=== PATIENT | female | born 1980 | race Caucasian/White ===

== ENCOUNTER 2019-03-24 08:40 | Outpatient (CLI) | payer OTHER, SELFPAY ==
--- NOTE | 2019-03-24 08:49 | MM_ITS ---
WS: [id number] BILATERAL DIGITAL DIAGNOSTIC MAMMOGRAM MAMMOGRAPHY WITH CAD CLINICAL INFORMATION: RT BREAST LUMP COMPARISON: None. TECHNIQUE: Bilateral CC, MLO, and ML views. FINDINGS: Scattered fibroglandular densities bilaterally. Palpable marker upper outer right breast. Oval shaped asymmetric density measuring 1.6 cm in this area. Ultrasound is pending. Unremarkable left breast. ULTRASOUND BREAST RIGHT TECHNIQUE: Ultrasound right breast focused area of concern. CLINICAL INFORMATION: RT BREAST LUMP COMPARISON: None. FINDINGS: Ultrasound right breast performed at the 8:00 position 4 cm from the nipple. Hypoechoic well-circumsc ribed cyst with through transmission measuring 1.2 x 1.4 x 1.2 cm corresponds to the mammographic abn ormality. This is a benign finding. No other abnormalities. MM/[place] [id number] IMPRESSION: BI-RADS: 2-Benign FOLLOW UP: 1 Year Follow-up Recommend annual screening mammography.
--- NOTE | 2019-03-24 09:31 | US_ITS ---
WS: [id number] BILATERAL DIGITAL DIAGNOSTIC MAMMOGRAM MAMMOGRAPHY WITH CAD CLINICAL INFORMATION: RT BREAST LUMP COMPARISON: None. TECHNIQUE: Bilateral CC, MLO, and ML views. FINDINGS: Scattered fibroglandular densities bilaterally. Palpable marker upper outer right breast. Oval shaped asymmetric density measuring 1.6 cm in this area. Ultrasound is pending. Unremarkable left breast. ULTRASOUND BREAST RIGHT TECHNIQUE: Ultrasound right breast focused area of concern. CLINICAL INFORMATION: RT BREAST LUMP COMPARISON: None. FINDINGS: Ultrasound right breast performed at the 8:00 position 4 cm from the nipple. Hypoechoic well-circumsc ribed cyst with through transmission measuring 1.2 x 1.4 x 1.2 cm corresponds to the mammographic abn ormality. This is a benign finding. No other abnormalities. US/US breast RT limited* [id number] IMPRESSION: BI-RADS: 2-Benign FOLLOW UP: 1 Year Follow-up Recommend annual screening mammography.
== END 2019-03-24 08:41 | disposition home or self-care (01) ==
LOC: RADSHAW 08:41
PROVIDERS: Family Provider Family Medicine; PCP Family Medicine; Visit Provider Family Medicine
DX: N63.11 Unspecified lump in the right breast, upper outer quadrant (principal)
CPT/HCPCS: 76642; 77066

== ENCOUNTER → 2019-04-26 10:29 | Outpatient (BNVA) | payer OTHER, SELFPAY | PROVIDERS: Family Provider Family Medicine; PCP Family Medicine; Visit Provider Family Medicine | DX: I10 Essential (primary) hypertension (principal) | CPT/HCPCS: 80053; 80061; 82044; 85025 ==

== ENCOUNTER → 2020-01-21 10:45 | Outpatient (BNVA) | payer OTHER, SELFPAY | PROVIDERS: Family Provider Family Medicine; PCP Family Medicine; Visit Provider Family Medicine | DX: I10 Essential (primary) hypertension (principal); G43.001 Migraine without aura, not intractable, with status migrainosus | CPT/HCPCS: 80048 ==

== ENCOUNTER → 2020-08-31 08:22 | Outpatient (BNVA) | payer OTHER, SELFPAY | PROVIDERS: Family Provider Family Medicine; PCP Family Medicine; Visit Provider Family Medicine | DX: I10 Essential (primary) hypertension (principal); Z86.39 Personal history of other endocrine, nutritional and metabolic disease | CPT/HCPCS: 80053; 80061; 82043; 82306; 85025 ==

== ENCOUNTER 2020-09-06 13:13 | Outpatient (CLI) | payer OTHER, SELFPAY ==
--- NOTE | 2020-09-06 13:30 | US_ITS ---
WS: [id number] ULTRASOUND PELVIS TECHNIQUE: Transabdominal and transvaginal. ULTRASOUND PELVIS TECHNIQUE: Transabdominal. CLINICAL INFORMATION: menorrhagia LMP: ? : No. COMPARISON: FINDINGS: Heterogeneous uterus Orientation: Anteverted. Size: 8.3 cm x 5.4 cm x 4.6 cm. Masses: None. Cervix: Complex nabothian cyst or with internal debris or possibly polyp measuring 1.0 x 0.9 x 0.6 cm . Endometrium: Normal. Endometrium thickness: 0.9 cm. Adnexa: Neither ovary is visualized. No adnexal masses. Free fluid: None. Other findings: None. US/US pelvic with transvaginal IMPRESSION: 1. Heterogeneous uterus with scar 2. Normal endometrium measuring 8.5 mm 3. Complex nabothian cyst with internal debris versus cervical polyp. This clifford sures 1.0 x 0.9 x 0.6 cm. This can be further evaluated with direct visualizati on/hysteroscopy 4. Neither ovary is visualized. No adnexal masses. 5. No free fluid in the cul-de-sac.
== END 2020-09-06 13:14 | disposition home or self-care (01) ==
PROVIDERS: PCP Family Medicine; Visit Provider Family Medicine
DX: N92.0 Excessive and frequent menstruation with regular cycle (principal); N88.8 Other specified noninflammatory disorders of cervix uteri
CPT/HCPCS: 76830; 76856

== ENCOUNTER → 2020-10-02 15:20 | Outpatient (BNVA) | payer OTHER, SELFPAY | PROVIDERS: PCP Family Medicine; Visit Provider Obstetrics & Gynecology | DX: Z12.4 Encounter for screening for malignant neoplasm of cervix (principal); N92.0 Excessive and frequent menstruation with regular cycle; N88.8 Other specified noninflammatory disorders of cervix uteri | CPT/HCPCS: 88175 ==

== ENCOUNTER → 2020-10-26 08:45 | Outpatient (BNVA) | payer OTHER, SELFPAY | PROVIDERS: PCP Family Medicine; Visit Provider Obstetrics & Gynecology | DX: Z20.822 Contact with and (suspected) exposure to COVID-19 (principal); N88.8 Other specified noninflammatory disorders of cervix uteri; N92.0 Excessive and frequent menstruation with regular cycle | CPT/HCPCS: 87635 ==

== ENCOUNTER 2020-10-31 11:07 | Day surgery (SDC) | payer OTHER, SELFPAY ==
[2020-10-26 09:50] VITALS: BMI 29.1
--- NOTE | 2020-10-26 09:59 | ANES.PREANE2 ---
Pre-Anesthetic Assessment Pre-Anesthetic Assessment: Height/Weight: Height 1.79 m Weight 93.44 kg Preop Diagnosis: Cervical mass Proposed Procedure: Operation Date: 10/31/20 12:55 Proposed Procedures p Hysteroscopy w/ Ablation w/ Novasure 32608 62642 N92.0 N88.8(Not Applicable) - Edith Hammond MD s Dilation And Curettage with myosure 59460(Not Applicable) - Edtih Hammond MD Familial anesthetic complications: none Social: Social History: No alcohol and No tobacco Exam: Pre-Anes Outpt Exam: alert, oriented x 3, clear to auscultation bilaterally and regular rate & rhythm Airway: Cervical ROM: WNL MP: 2 Dentition: Full CV/HEM: CV/HEM: HTN Comments: palpitations - not currently Anesthetic Plan: ASA status: 2 Anesthesia: General Risk of > 500 ml blood loss (7ml/kg in children): No PFSH Anesthesia PFSH: Medical History Essential hypertension Migraines Surgical History S/P section Family History Mother Atrial fibrillation Thyroid disease Father Atrial fibrillation Hypertension Family/Other Ovarian cancer Maternal and Paternal Aunts Grandmother Cancer Maternal - lung cancer Diabetes Maternal Grandfather Stroke Paternal Denies family history of CAD (coronary artery disease) Clotting disorder Hyperlipidemia Chronic kidney disease (CKD) Bleeding disorder Female Reproductive History: Date of last menstrual period: 10/07/20 Data Anesthesia Cardiac Studies: No Data to Display
[2020-10-31] VITALS (7 sets, daily range): BP systolic 124–146; BP diastolic 79–93; PULSE 68–80; RESP 17–20; TEMP 36.3–37.2; O2SAT 95–100
[2020-10-31] MEDS: sodium chloride 0.9% 1,000 ML 30 ML IV (11:28)
[2020-10-31 11:39] LABS: OR HCG Qualitative Urine Negative (Negative)
[2020-10-31 11:49] LABS: Basophils % 0.4 %; Eosinophils # 0.4 10^3/uL (0.0-0.8); Eosinophils % 4.9 %; Hematocrit 39.3 % (37.0-47.0); Hemoglobin 12.8 g/dL (11.5-15.3); Lymphocytes # 1.1 10^3/uL (0.8-4.8); Lymphocytes % 15.3 %; Mean Corpuscular HGB Conc 32.6 g/dL (30.0-36.0); Mean Corpuscular Hemoglobin 31.5 pg (28.0-34.0); Mean Corpuscular Volume 96.8 fl (81-99); Mean Platelet Volume 9.1 fL (7.4-10.4); Monocytes # 0.4 10^3/uL (0.2-0.9); Monocytes % 5.9 %; Neutrophils # 5.38 10^3/uL (1.8-7.7); Neutrophils % 73.4 %; Nucleated Red Blood Cells % 0 %; Platelet Count 385 10^3/cmm (130-400); Red Blood Count 4.06 10^6/uL (4.1-5.3); Red Cell Distribution Width 14.4 % (12.1-15.1); White Blood Count 7.3 10^3/uL (4.0-10.0)
[2020-10-31] MEDS: ketorolac 30 mg/mL INJ IVP (12:06)
[2020-10-31 12:25] LABS: Blood Urea Nitrogen 13 mg/dL (6-20); Carbon Dioxide 21 mmol/L (22-29); Chloride 105 mmol/L (98-107); Glomerular Filtration Rate 135.3 mL/min (90-130); Glucose 88 mg/dL (65-115); Osmolality Calculated 288 mOsm/kg (285-295); Sodium 139 mmol/L (136-145)
[2020-10-31 12:27] LABS: Anion Gap 17.2 (5-19); Potassium 4.2 mmol/L (3.5-5.1)
--- NOTE | 2020-10-31 12:47 | ANES.PREANE2 ---
Pre-Anesthetic Assessment Pre-Anesthetic Assessment: Height/Weight: Height 1.79 m Weight 93.44 kg Temp Pulse Resp BP Pulse Ox 97.3 F L 68 18 126/93 97 10/31/20 11:18 10/31/20 11:18 10/31/20 11:18 10/31/20 11:18 10/31/20 11:18 Preop Diagnosis: menorrhagia Proposed Procedure: Operation Date: 10/31/20 12:55 Proposed Procedures p Hysteroscopy w/ Ablation w/ Novasure 30378 80438 N92.0 N88.8(Not Applicable) - Edith Hammond MD s Dilation And Curettage with myosure 09274(Not Applicable) - Edith Hammond MD Was Beta Marry taken within 24 hours: N/A Was Clonidine taken within 24 hours: N/A Last intake: Intake Last Liquid Date 10/30/20 Last Liquid Time 20:00 Last Solid Date 10/30/20 Last Solid Time 20:00 Social: Social History: No alcohol and No tobacco Exam: Pre-Anes Outpt Exam: alert, oriented x 3, clear to auscultation bilaterally and regular rate & rhythm Airway: Submandibular: WNL Cervical ROM: WNL MP: 2 Dentition: Full CV/HEM: CV/HEM: HTN Neuropsych: Neuropsych: [place] Anesthetic Plan: ASA status: 2 Anesthesia: General Risk of > 500 ml blood loss (7ml/kg in children): No Meds/Allergies Current Medications: Current Medications Generic Name Dose Route Start Last Admin Trade Name Freq PRN Reason Stop Dose Admin Sodium Chloride 1,000 mls @ 30 ml s/hr 10/31/20 11:15 10/31/20 11:28 Sodium Chloride 0.9% IV 11/01/20 11:14 30 mls/hr .Q24H ULICES Administration PFSH Anesthesia PFSH: Medical History Essential hypertension Migraines Surgical History S/P section Family History Mother Atrial fibrillation Thyroid disease Father Atrial fibrillation Hypertension Family/Other Ovarian cancer Maternal and Paternal Aunts Grandmother Cancer Maternal - lung cancer Diabetes Maternal Grandfather Stroke Paternal Denies family history of CAD (coronary artery disease) Clotting disorder Hyperlipidemia Chronic kidney disease (CKD) Bleeding disorder Female Reproductive History: Date of last menstrual period: 10/07/20 Data Anesthesia CBC & Chem 7: 10/31/20 11:30 10/31/20 11:30 Other Labs: Laboratory Results - last 48 hr 10/31/20 10/31/20 10/31/20 11:29 11:30 11:30 WBC 7.3 RBC 4.06 L Hgb 12.8 Hct 39.3 MCV 96.8 MCH 31.5 MCHC 32.6 RDW 14.4 Plt Count 385 MPV 9.1 Neut % (Auto) 73.4 Lymph % (Auto) 15.3 [place] % (Auto) 5.9 Eos % (Auto) 4.9 Baso % (Auto) 0.4 Neut # (Auto) 5.38 Lymph # (Auto) 1.1 [place] # (Auto) 0.4 Eos # (Auto) 0.4 Baso # (Auto) 0.0 Nucleated RBC % (auto) 0 Nucleated RBCs # 0.0 Sodium 139 Potassium 4.2 Chloride 105 Carbon Dioxide 21 L Anion Gap 17.2 BUN 13 Creatinine 0.5 GFR Calculation 135.3 H Glucose 88 Calculated Osmolality 288 Calcium 9.0 Urine HCG, Qual Negative Cardiac Studies: No Data to Display
--- NOTE | 2020-10-31 13:10 | W.PM.OPSUD ---
Surgery/Procedure H&P Update DATE OF PROCEDURE: October 31, 2020 DATE H&P PERFORMED: 10/26/20 H&P UPDATE INFORMATION: I have reviewed H&P completed within last 30 days, I have examined patient prior to procedure and No changes to prior documentation PREOP DIAGNOSIS: menorrhagia PLANNED PROCEDURE: Operation Date: 10/31/20 12:55 Proposed Procedures p Hysteroscopy w/ Ablation w/ Novasure [id number] 72527 N92.0 N88.8(Not Applicable) - Edith Hammond MD s Dilation And Curettage with myosure 81814(Not Applicable) - Edith Hammond MD
--- NOTE | 2020-10-31 14:18 | PM.OP ---
Operative Report Date of procedure: October 31, 2020 Pre-op Diagnosis: menorrhagia Post-op diagnosis: same Post-op Findings: 10 week sized uterus with multiple fibroids and polyps Procedure Done: hysteroscopy, dilation and curettage with myosure, endometrial ablation with novasure Specimens removed/disposition: endometrial curettings to pathology Surgeon: Edith Hammond Anesthesia: General Estimated blood loss (mL): 20 IV fluids (mL): 800 Urine output (mL): 50 Complications: none Findings: 900 hysteroscopy deficit Condition: stable Disposition: PACU Procedure: The patient was taken to the operating room where monitored anesthesia was administered and to be adequate. She was prepped and draped in the normal sterile fashion in the dorsal lithotomy position in [facility]. A weighted speculum was placed into the vagina and the anterior lip of the cervix grasped with a single-tooth tenaculum. The uterus was sounded to 10 cm. The cervix was dilated to 15 [place]. The hysteroscope was advanced into the endometrial cavity. There were multiple fibroids and polyps visualized. The MyoSure device was activated and the tissue was removed. Pictures were taken pre procedure. There was too much bleeding from the fibroids to take post procedure pictures. Attention was turned to the novasure portion of the procedure The NovaSure device was advanced into the endometrial cavity. The endometrial length was 6.5 and the endometrial width was 4.9. The NovaSure device was activated and burn time was 61 seconds. All instruments were removed. The patient tolerated the procedure well. Sponge lap and needle counts were correct x3. She was taken to the recovery room in stable condition.
--- NOTE | 2020-10-31 14:24 | P.DS_ITS ---
Discharge Providers Date of Discharge: October 31, 2020 Attending Provider at Discharge: Edith Hammond MD Primary Care Provider: Cary Lamb DO Reason for Visit Reason for Visit: Hysteroscopy Hospital Course Hospital Course The patient was admitted for surgery. She did well postoperatively and was ready for discharge. Discharge Data Data Completed and Pending: Pending at discharge Category Date Time Status ES surgery / GI i mages Routine Exams 10/31/20 12:32 Ordered Urine Culture [facility] 10/31/20 11:30 Received Pathology: Surgic al [PTH] Routine Pth 10/31/20 14:17 Ordered Labs from last 24 hours 10/31/20 10/31/20 10/31/20 11:30 11:30 11:29 WBC 7.3 RBC 4.06 L Hgb 12.8 Hct 39.3 MCV 96.8 MCH 31.5 MCHC 32.6 RDW 14.4 Plt Count 385 MPV 9.1 Neut % (Auto) 73.4 Lymph % (Auto) 15.3 [place] % (Auto) 5.9 Eos % (Auto) 4.9 Baso % (Auto) 0.4 Neut # (Auto) 5.38 Lymph # (Auto) 1.1 [place] # (Auto) 0.4 Eos # (Auto) 0.4 Baso # (Auto) 0.0 Nucleated RBC % (a uto) 0 Nucleated RBCs # 0.0 Sodium 139 Potassium 4.2 Chloride 105 Carbon Dioxide 21 L Anion Gap 17.2 BUN 13 Creatinine 0.5 GFR Calculation 135.3 H Glucose 88 Calculated Osmolal ity 288 Calcium 9.0 Urine HCG, Qual Negative Vitals: Last Vital Signs Temp 97.3 F L 10/31/20 11:18 Pulse 68 10/31/20 11:18 Resp 18 10/31/20 11:18 BP 126/93 10/31/20 11:18 Pulse Ox 97 10/31/20 11:18 Discharge Plan Discharge Patient Disposition: Home Condition: Stable Prescriptions: Continued multivitamin [One Daily Multivitamin] Tablet 1 tab PO DAILY RF: 0 cetirizine [Zyrtec] 10 mg tablet 10 mg PO QDAY RF: 0 lisinopril 20 mg tablet 20 mg PO QDAY Qty: 90 RF: 1 rizatriptan [Maxalt-[employer] SYSTEM[employer] MANAGER] 10 mg tablet,disintegrating 10 mg PO ONCE PRN (Reason: migraine headache) Qty: 18 RF: 6 cholecalciferol (vitamin D3) 1,250 mcg (50,000 unit) capsule 50,000 unit PO .ONCE WEEKLY Qty: 12 RF: 0 naproxen [Naprosyn] 500 mg tablet 500 mg PO BID PRN (Reason: pain) Qty: 30 RF: 1 Discharge Orders: Discharge Order (Routine); Ordered 10/31/20 Ordered By: Edith Hammond Discharge Attestations Time Spent in Discharge Care*: less than 30 min Quality Metrics Clinical Quality Measures During this hospital stay, did patient experience: None Coding Level of Care Code Acute Chg FW DC note
[2020-10-31] MEDS: HYDROcodone-acetaminophen 5-325 mg Tablet 1 TAB PO (15:18)
--- NOTE | 2020-10-31 15:57 | ANE.PACU2 ---
Inpatient post-anesthesia follow up: Airway intact: Yes Vital signs: Temperature 97.5 F Pulse Rate 68 Respiratory Rate 18 Blood Pressure 146/93 Pulse Oximetry 97 Oxygen Delivery Me thod Room Air Oxygen Flow Rate Fraction of Inspir ed Oxygen Hydration adequate: Yes Nausea and vomiting: No Pain level: 2 Mental status: Baseline
== END 2020-10-31 15:35 | disposition home or self-care (01) ==
PROVIDERS: PCP Family Medicine; Visit Provider Obstetrics & Gynecology
PROC: 0U598ZZ Destruction of Uterus, Via Natural or Artificial Opening Endoscopic (ICD-10-PCS; CPT 58563; principal; 2020-10-31 12:50)
PROC: (CPT 58120; 2020-10-31 12:50)
DX: N92.0 Excessive and frequent menstruation with regular cycle (principal); I10 Essential (primary) hypertension
CPT/HCPCS: 58558; 36415; 80048; 81025; 84703; 85025; 87086; 88305; 96365; J0690; J1100; J1885; J2405; J3010; J7030

== ENCOUNTER → 2021-03-12 10:09 | Outpatient (BNVA) | payer OTHER, SELFPAY | PROVIDERS: PCP Family Medicine; Visit Provider Family Medicine | DX: I10 Essential (primary) hypertension (principal); Z86.39 Personal history of other endocrine, nutritional and metabolic disease; G43.001 Migraine without aura, not intractable, with status migrainosus; M62.838 Other muscle spasm; Z68.29 Body mass index [BMI] 29.0-29.9, adult; F17.211 Nicotine dependence, cigarettes, in remission | CPT/HCPCS: 80053; 82306 ==

== ENCOUNTER → 2021-03-26 09:30 | Outpatient (BNVA) | payer OTHER, SELFPAY | PROVIDERS: PCP Family Medicine; Visit Provider Nurse Practitioner Family | DX: Z20.822 Contact with and (suspected) exposure to COVID-19 (principal) | CPT/HCPCS: 87635; 87880 ==

== ENCOUNTER → 2021-09-17 08:42 | Outpatient (BNVA) | payer OTHER, SELFPAY | PROVIDERS: PCP Family Medicine; Visit Provider Family Medicine | DX: I10 Essential (primary) hypertension (principal); G43.001 Migraine without aura, not intractable, with status migrainosus; Z12.31 Encounter for screening mammogram for malignant neoplasm of breast | CPT/HCPCS: 80053; 80061; 82043; 85025 ==

== ENCOUNTER → 2021-11-21 11:45 | Outpatient (BNVA) | payer OTHER, SELFPAY | PROVIDERS: PCP Family Medicine; Visit Provider Emergency Medicine | DX: R30.0 Dysuria (principal); N30.01 Acute cystitis with hematuria; F41.8 Other specified anxiety disorders | CPT/HCPCS: 81000 ==

== ENCOUNTER → 2022-03-12 08:49 | Outpatient (BNVA) | payer OTHER, SELFPAY | PROVIDERS: PCP Family Medicine; Visit Provider Family Medicine | DX: Z86.39 Personal history of other endocrine, nutritional and metabolic disease (principal); I10 Essential (primary) hypertension | CPT/HCPCS: 80053; 82306 ==

== ENCOUNTER → 2022-09-19 11:18 | Outpatient (BNVA) | payer OTHER, SELFPAY | PROVIDERS: PCP Family Medicine; Visit Provider Family Medicine | DX: Z13.6 Encounter for screening for cardiovascular disorders (principal); I10 Essential (primary) hypertension | CPT/HCPCS: 80053; 80061; 82607; 82728; 83550; 85025 ==

== ENCOUNTER 2022-11-25 14:48 | Outpatient (CLI) | payer OTHER, SELFPAY ==
--- NOTE | 2022-11-25 15:04 | MM_ITS ---
WS: [id number] BILATERAL 3D TOMOSYNTHESIS DIGITAL SCREENING MAMMOGRAPHY WITH CAD CLINICAL INFORMATION: screening mammogram HISTORY: Screening mammogram. No current complaints. COMPARISON: 2020 TECHNIQUE: Bilateral CC and MLO views. FINDINGS: Scattered fibroglandular densities bilaterally. Similar-appearing RIGHT ovoid nodule previously demon strated to represent a cyst. New ovoid nodules LEFT breast measuring 10 mm and 9 [address] lateral LEFT [address] Additional partially obscured new nodule upper outer LEFT breast measuring 10 mm. Recommend LEFT diagnostic mammography and ultrasound. RIGHT breast is unchanged. IMPRESSION: MM/[place] [id number] BI-RADS: 0-Incomplete: Need additional imaging evaluation FOLLOW UP: Need Additional Imaging Recommend LEFT diagnostic mammography and ultrasound
== END 2022-11-25 14:49 | disposition home or self-care (01) ==
LOC: RAD 14:50
PROVIDERS: PCP Family Medicine; Visit Provider Family Medicine
DX: Z12.31 Encounter for screening mammogram for malignant neoplasm of breast (principal)
CPT/HCPCS: 77063; 77067

== ENCOUNTER 2022-12-19 09:07 | Outpatient (CLI) | payer OTHER, SELFPAY ==
--- NOTE | 2022-12-19 09:11 | MM_ITS ---
WS: [id number] LEFT 3D TOMOSYNTHESIS DIGITAL MAMMOGRAPHY WITH CAD CLINICAL INFORMATION: abnormal mammogram HISTORY: Additional views COMPARISON: 11/25/2022 TECHNIQUE: 4 views of the left breast were obtained. FINDINGS: The left breast is composed of heterogeneous fibroglandular density tissue, which can limit the detec tion of small underlying mass lesions. Stable nodular ovoid lesions upper outer LEFT breast. Ultrasou nd is pending. ULTRASOUND BREAST LEFT TECHNIQUE: Ultrasound left breast focused area of concern. CLINICAL INFORMATION: abnormal mammogram FINDINGS: Ultrasound upper outer quadrant LEFT breast. Multiple simple cysts are visualized the largest measuri ng 1.3 x 1.3 x 0.6 cm at the 2 o'clock position 2 cm from the nipple. Findings are benign. Recommend return to annual screening mammography. IMPRESSION: MM/[place] [id number] BI-RADS: 2-Benign FOLLOW UP: 1 Year Follow-up Recommend return to annual screening mammography.
--- NOTE | 2022-12-19 09:30 | US_ITS ---
WS: [id number] LEFT 3D TOMOSYNTHESIS DIGITAL MAMMOGRAPHY WITH CAD CLINICAL INFORMATION: abnormal mammogram HISTORY: Additional views COMPARISON: 11/25/2022 TECHNIQUE: 4 views of the left breast were obtained. FINDINGS: The left breast is composed of heterogeneous fibroglandular density tissue, which can limit the detec tion of small underlying mass lesions. Stable nodular ovoid lesions upper outer LEFT breast. Ultrasou nd is pending. ULTRASOUND BREAST LEFT TECHNIQUE: Ultrasound left breast focused area of concern. CLINICAL INFORMATION: abnormal mammogram FINDINGS: Ultrasound upper outer quadrant LEFT breast. Multiple simple cysts are visualized the largest measuri ng 1.3 x 1.3 x 0.6 cm at the 2 o'clock position 2 cm from the nipple. Findings are benign. Recommend return to annual screening mammography. IMPRESSION: US/US breast LT limited* [id number] BI-RADS: 2-Benign FOLLOW UP: 1 Year Follow-up Recommend return to annual screening mammography.
== END 2022-12-19 09:08 | disposition home or self-care (01) ==
LOC: RAD 09:07
PROVIDERS: PCP Family Medicine; Visit Provider Family Medicine
DX: R92.8 Other abnormal and inconclusive findings on diagnostic imaging of breast (principal)
CPT/HCPCS: 76642; 77061; G0279

== ENCOUNTER 2023-04-19 16:37 | Emergency (ER) | payer BC, SELFPAY ==
[2023-04-19 16:47] VITALS: BP 188/111; PULSE 73; RESP 17; TEMP 36.7; O2SAT 96; BMI 29.4
--- NOTE | 2023-04-19 16:56 | ECG_ITS ---
[facility] Test Date: 2023-04-19 Pat Name: Lisa Almonte Department: Room: Gender: Female [employer]: : 1980 Requested By: Jignesh Lorenzo Order Number: [id number] Rosita MD: Jaden Barksdale M.D. Measurements Intervals [place] Rate: 63 P: 24 TN: 184 QRS: -31 QRSD: 118 T: -6 QT: 409 QTc: 421 Interpretive Statements SINUS RHYTHM LEFT AXIS DEVIATION [QRS AXIS < -30] PATTERN CONSISTENT WITH PULMONARY DISEASE MODERATE INTRAVENTRICULAR CONDUCTION DELAY [110+ ms QRS DURATION] INTERPRETATION BASED ON A DEFAULT AGE OF 40 YEARS No previous ECG available for comparison Electronically Signed On 04-20-2023 8:21:15 [employer] [place] by Jaden Barksdale M.D. [id number]
[2023-04-19 17:27] LABS: Basophils # 0.1 10^3/uL (0.0-0.1); Basophils % 0.4 %; Eosinophils # 0.1 10^3/uL (0.0-0.8); Eosinophils % 0.9 %; Hematocrit 39.8 % (36-47); Lymphocytes # 1.3 10^3/uL (0.8-4.8); Lymphocytes % 9.2 %; Mean Corpuscular HGB Conc 32.7 g/dL (30-55); Mean Corpuscular Hemoglobin 32.7 pg (27-33); Mean Platelet Volume 8.6 fL (7.4-10.4); Monocytes # 0.7 10^3/uL (0.2-0.9); Monocytes % 4.9 %; Neutrophils # 11.79 10^3/uL (1.8-7.7); Neutrophils % 84.3 %; Nucleated Red Blood Cells % 0 %; Platelet Count 336 10^3/cmm (157-399); Red Blood Count 3.98 10^6/uL (3.85-5.65); Red Cell Distribution Width 12.7 % (12.1-15.1)
[2023-04-19 17:50] LABS: Alanine Aminotransferase 18 U/L (0-33); Albumin Level 4.3 g/dL (3.5-5.2); Alkaline Phosphatase 94 U/L (35-105); Anion Gap 16.1 (5-19); Aspartate Amino Transferase 23 U/L (0-32); Blood Urea Nitrogen 11 mg/dL (6-20); Calcium 8.8 mg/dL (8.5-10.5); Carbon Dioxide 23 mmol/L (22-29); Chloride 105 mmol/L (98-107); Globulin 2.6 g/dL (1.3-4.6); Glomerular Filtration Rate 108.1 mL/min (90-130); Glucose 97 mg/dL (65-115); Lipase 22 U/L (13-60); Osmolality Calculated 289 mOsm/kg (285-295); Potassium 4.1 mmol/L (3.5-5.1); Sodium 140 mmol/L (136-145); Total Bilirubin 0.2 mg/dL (0.15-1.2); Total Protein 6.9 g/dL (6.6-8.7)
[2023-04-19 17:54] LABS: HCG, Serum Qual Negative (Negative)
--- NOTE | 2023-04-19 18:00 | CTR_ITS ---
PROCEDURE INFORMATION: Exam: CT Abdomen And Pelvis Without Contrast Exam date and time: 04/19/2023 6:26 PM Age: 43 years old Clinical indication: Abdominal pain; Localized; Right lower quadrant (rlq); Prior surgery; Surgery date: 6+ months; Surgery type: Gb. Uterine ablation. Csection. Tubal. ; Additional info: Rlq pain, Negative test. TECHNIQUE: Imaging protocol: Computed tomography of the abdomen and pelvis without contrast. Sagittal and coronal reformatted images were created and reviewed. Radiation optimization: All CT scans at this facility use at least one of these dose optimization techniques: automated exposure control; mA and/or kV adjustment per patient size (includes targeted exams where dose is matched to clinical indication); or iterative reconstruction. COMPARISON: US pelv w/transvag [id number] 09/06/2020 1:44 PM RADIATION DOSE METRICS: Total DLP (mGy-cm): 1139.09 FINDINGS: Limitations: Evaluation of solid organs and vasculature is limited without intravenous contrast. Lungs: Visualized lungs are clear. Pleural spaces: No pleural effusion. Heart: Visualized portions of the heart are unremarkable. Liver: The liver is unremarkable. Gallbladder and bile ducts: Patient has had a previous cholecystectomy. No biliary ductal dilatation. Pancreas: The pancreas is unremarkable. No pancreatic ductal dilatation. Spleen: The spleen is unremarkable. Adrenal glands: The right and left adrenal glands are unremarkable. Kidneys and ureters: The right and left kidneys are unremarkable. The right and left ureters are unremarkable. Stomach and bowel: No obstruction. No mucosal thickening. Appendix: The appendix is visualized and is unremarkable. No findings to suggest acute appendicitis. Intraperitoneal space: No free intraperitoneal air. No ascites. No loculated fluid collections to suggest an abscess. Vasculature: Minimal atherosclerotic changes in the visualized arteries. No evidence for aortic aneurysm. Lymph nodes: No lymphadenopathy. Urinary bladder: The bladder is unremarkable for the degree of distension. Reproductive: Calcification in the right ovary, possibly due to sequela from a prior involuting cyst. Multiple subcentimeter follicles in both right and left ovaries. 1.6 x 2.1 x 2.6 cm fluid collection in the endometrial canal. Bones/joints: [id number] multilevel degenerative changes in the visualized spine. Soft tissues: No acute abnormality in the extra-abdominal soft tissues. CT/CT abdomen pelvis wo con [id number] IMPRESSION: 1.6 x 2.1 x 2.6 cm cystic focus in the endometrial canal. Per report, test is negative. Etiology is uncertain. This could be due to the phase of the patient's menstrual cycle, however pelvic ultrasound is recommended for further evaluation. COMMENTS: Urgent results were discussed with DENICE Lomeli on 04/19/2023 at 7:08 PM MUSICAL PERFORMER.
[2023-04-19 18:20] LABS: Add Urine Microscopic? NO; Charge for UA Resulting for Rev
[2023-04-19 18:28] LABS: Bilirubin Urine Neg (Negative); Blood Urine Neg (Negative); Glucose Urine UA Norm (Normal); Ketones Urine Negative (Negative); Leukocyte Esterase Urine Negative (Negative); Nitrate Urine Negative (Negative); Protein Urine Neg (Negative); Urine Appearance Clear (CLEAR); Urine Color Yellow (Yellow); Urobilinogen Urine Norm (Negative); pH Urine 5 (5-7)
[2023-04-19 18:29] VITALS: BP 191/103; PULSE 100; O2SAT 97
[2023-04-19] MEDS: ondansetron 2 mg/ML SDV 2 mL 4 MG IVP (18:58)
[2023-04-19 19:01] VITALS: RESP 16; O2SAT 96
[2023-04-19] MEDS: morphine 4 mg/mL SDV 1 mL IVP (19:01)
--- NOTE | 2023-04-19 19:29 | ED_ITS ---
HPI - Abdominal Pain 2 General: Chief Complaint: Abdominal Pain Stated Complaint: Abd pain Time Seen by Provider: 04/19/23 17:50 History of Present Illness: This patient is a 43-year-old white female who presents to the emergency department with right lower quadrant abdominal pain. Patient states this pain has been coming and going. It actually started on March 24. She has had some nausea but no vomiting. She has felt somewhat constipated. No dysuria or hematuria. No fever. Her past medical history includes hypertension, migraines and high cholesterol. Past surgical history includes cholecystectomy, x 2 and uterine ablation. Review of Systems 2 General: Reports: 10 or more systems reviewed and unremarkable except in HPI and below PFSH ED 2 PFSH: Medical History Mixed anxiety depressive disorder Essential hypertension Migraines Surgical History H/O tubal ligation S/P section Family History Mother Atrial fibrillation Thyroid disease Father Atrial fibrillation Hypertension Family/Other Ovarian cancer Maternal and Paternal Aunts Grandmother Cancer Maternal - lung cancer Diabetes Maternal Grandfather Stroke Paternal Denies family history of CAD (coronary artery disease) Clotting disorder Hyperlipidemia Chronic kidney disease (CKD) Bleeding disorder Social History Smoking and tobacco/nicotine status: former use of tobacco/nicotine Substance/Drug Use: never Female Reproductive History: Spontaneous abortions: No Physical Exam 2 Const: COMMON NORMALS: no acute distress, patient oriented x3 and no limitations GENERAL APPEARANCE: cooperative and comfortable HENMT: COMMON NORMALS: normocephalic, atraumatic, Normal nasal mucous membranes and turbinates present, moist oral mucous membranes and oropharynx normal HEAD & SCALP: normal to inspection, normocephalic and atraumatic F LOR & SINUS: normal facial exam NOSE: Normal nasal mucous membranes and turbinates present Eye: COMMON NORMALS: Equal, round and reactive pupils present, EOMs intact bilaterally and conjunctivae normal GENERAL EYE: appearance normal, both eyes and all related structures CONJUNCTIVA: Yes conjunctivae normal PUPIL: Yes Equal, round and reactive pupils present Neck/C-Spine: COMMON NORMALS: supple and no JVD Chest: COMMONS NORMALS: normal inspection of the chest Resp: COMMON NORMALS: normal respiratory effort and clear to auscultation bilaterally AUSCULTATION: clear to auscultation bilaterally Cardio: COMMON NORMALS: no JVD, regular rate, regular rhythm, No gallops present (Cardio), No murmurs present (Cardio) and No rub (Cardio) RATE: r egular rate RHYTHM: regular rhythm GI: COMMON NORMALS: Soft to palpation AUSCULTATION: Yes normoactive bowel sounds PALPATION: Yes Soft to palpation and Yes Tenderness to palpation present (GI) (Mild right lower quadrant tenderness to deep palpation.) : COMMON NORMALS: Yes no CVA tenderness BLADDER/KIDNEY EXAM: Yes no CVA tenderness Back/Pelvis: COMMON NORMALS: no CVA tenderness and thoracic and lumbar spine normal to inspection Extremity: COMMON NORMALS: normal to inspection Neuro: COMMON NORMALS: patient oriented x3 and CN's II-XII intact bilaterally Psych: COMMON NORMALS: mental status grossly normal, Normal thought process present and cooperative THOUGHT PROCESS: Normal thought process present Skin: COMMON NORMALS: no rashes or lesions noted, turgor normal and no jaundice GENERAL SKIN EXAM: no rashes or lesions noted and turgor normal Course 2 Vital Signs: Vital signs: Vital Signs Temperature 98.1 F 04/19/23 16:47 Pulse Rate 100 04/19/23 18:29 Respiratory Rate 16 04/19/23 19:01 Blood Pressure 191/103 04/19/23 18:29 Pulse Oximetry 96 04/19/23 19:01 Oxygen Delivery Me thod Room Air 04/19/23 16:47 MDM - Abdominal Pain Medical Decision Making EKG revealed sinus rhythm with no ST segment abnormalities. CBC revealed a white blood cell count of 14.0. CMP was normal. Lipase 22. hCG negative. Urinalysis normal. CT scan of the abdomen pelvis was read by the radiologist. Appendix was normal. They did note an endometrial cyst and recommended follow- up ultrasound. I discussed the results with the patient. Patient was given morphine for her pain in the emergency department. She was discharged in stable condition with a prescription for hydrocodone. Recommended she follow-up with her primary care physician as soon as possible and have them order an outpatient pelvic ultrasound. Lab Data 04/19/23 17:23 04/19/23 17:23 Labs/Radiology: Radiology Impressions Abdomen/Pelvis CT 04/19/23 18:00 IMPRESSION: 1.6 x 2.1 x 2.6 cm cystic focus in the endometrial canal. Per report, test is negative. Etiology is uncertain. This could be due to the phase of the patient's menstrual cycle, however pelvic ultrasound is recommended for further evaluation. COMMENTS: Urgent results were discussed with DENICE Lomeli on 04/19/2023 at 7:08 PM [employer]. Laboratory Results WBC 14.00 10^3/uL (3.29-11.43) H 04/19/23 17:23 RBC 3.98 10^6/uL (3.85-5.65) 04/19/23 17:23 Hgb 13.00 g/dL (11.27-16.99) 04/19/23 17:23 Hct 39.8 % (36-47) 04/19/23 17:23 MCV 100.0 fl (85-98) H 04/19/23 17:23 MCH 32.7 pg (27-33) 04/19/23 17:23 MCHC 32.7 g/dL (30-55) 04/19/23 17:23 RDW 12.7 % (12.1-15.1) 04/19/23 17:23 Plt Count 336 10^3/cmm (157-399) 04/19/23 17:23 MPV 8.6 fL (7.4-10.4) 04/19/23 17:23 Neut % (Auto) 84.3 % 04/19/23 17:23 Lymph % (Auto) 9.2 % 04/19/23 17:23 [place] % (Auto) 4.9 % 04/19/23 17:23 Eos % (Auto) 0.9 % 04/19/23 17:23 Baso % (Auto) 0.4 % 04/19/23 17:23 Neut # (Auto) 11.79 10^3/uL (1.8-7.7) H 04/19/23 17:23 Lymph # (Auto) 1.3 10^3/uL (0.8-4.8) 04/19/23 17:23 [place] # (Auto) 0.7 10^3/uL (0.2-0.9) 04/19/23 17:23 Eos # (Auto) 0.1 10^3/uL (0.0-0.8) 04/19/23 17:23 Baso # (Auto) 0.1 10^3/uL (0.0-0.1) 04/19/23 17:23 Nucleated RBC % (auto) 0 % 04/19/23 17:23 Nucleated RBCs # 0.0 /100WBC 04/19/23 17:23 Sodium 140 mmol/L (136-145) 04/19/23 17:23 Potassium 4.1 mmol/L (3.5-5.1) 04/19/23 17:23 Chloride 105 mmol/L (98-107) 04/19/23 17:23 Carbon Dioxide 23 mmol/L (22-29) 04/19/23 17:23 Anion Gap 16.1 (5-19) 04/19/23 17:23 BUN 11 mg/dL (6-20) 04/19/23 17:23 Creatinine 0.6 mg/dL (0.5-0.9) 04/19/23 17:23 GFR Calculation 108.1 mL/min (90-130) 04/19/23 17:23 Glucose 97 mg/dL (65-115) 04/19/23 17:23 Calculated Osmolality 289 mOsm/kg (285-295) 04/19/23 17:23 Calcium 8.8 mg/dL (8.5-10.5) 04/19/23 17:23 Total Bilirubin 0.2 mg/dL (0.15-1.2) 04/19/23 17:23 AST 23 U/L (0-32) 04/19/23 17:23 ALT 18 U/L (0-33) 04/19/23 17:23 Alkaline Phosphatase 94 U/L (35-105) 04/19/23 17:23 Total Protein 6.9 g/dL (6.6-8.7) 04/19/23 17:23 Albumin 4.3 g/dL (3.5-5.2) 04/19/23 17:23 Globulin 2.6 g/dL (1.3-4.6) 04/19/23 17:23 Lipase 22 U/L (13-60) 04/19/23 17:23 HCG, Qual Negative (Negative) 04/19/23 17:23 Urine Color Yellow (Yellow) 04/19/23 18:14 Urine Appearance Clear (CLEAR) 04/19/23 18:14 Urine pH 5 (5-7) 04/19/23 18:14 Ur Specific [place] 1.020 (1.005-1.030) 04/19/23 18:14 Urine Protein Neg (Negative) 04/19/23 18:14 Urine Glucose (UA) Norm (Normal) 04/19/23 18:14 Urine Ketones Negative (Negative) 04/19/23 18:14 Urine Blood Neg (Negative) 04/19/23 18:14 Urine Nitrate Negative (Negative) 04/19/23 18:14 Urine Bilirubin Neg (Negative) 04/19/23 18:14 Urine Urobilinogen Norm mg/dL (Negative) 04/19/23 18:14 Ur Leukocyte Esterase Negative (Negative) 04/19/23 18:14 All radiology interpretation(s) finalized by discharge Discharge Plan Discharge Patient Disposition: Home Clinical Impression: Cystic endometrial hyperplasia, Pelvic pain Condition: Stable Prescriptions: New hydrocodone-acetaminophen 5-325 mg tablet 1 tab PO Q4H PRN (Reason: pain) Qty: 30 0RF No Action multivitamin [One Daily Multivitamin] Tablet 1 tab PO DAILY cetirizine [Zyrtec] 10 mg tablet 10 mg PO QDAY cholecalciferol (vitamin D3) 1,250 mcg (50,000 unit) capsule 50,000 unit PO .ONCE WEEKLY Qty: 12 0RF Rx Instructions: TAKE ONE 50,000 UNIT CAPSULE PER WEEK buspirone 10 mg tablet 10 mg PO TID PRN (Reason: anxiety) Qty: 90 1RF naproxen [Naprosyn] 500 mg tablet 500 mg PO BID PRN (Reason: pain) Qty: 60 3RF atorvastatin 10 mg tablet See Rx Instructions .ROUTE .COMPLEX Qty: 90 0RF Dose Instruction: Take 1 tablet by mouth once daily Rx Instructions: Take 1 tablet by mouth once daily escitalopram oxalate 20 mg tablet See Rx Instructions .ROUTE .COMPLEX Qty: 90 0RF Dose Instruction: Take 1 tablet by mouth once daily Rx Instructions: Take 1 tablet by mouth once daily rizatriptan [Maxalt-[employer]] 10 mg tablet,disintegrating 10 mg PO ONCE PRN (Reason: migraine headache) Qty: 18 6RF Rx Instructions: Take 1 tab at onset of headache, may repeat once in >=2 hours losartan 50 mg tablet See Rx Instructions .ROUTE .COMPLEX Qty: 90 0RF Dose Instruction: Take 1 tablet by mouth once daily Rx Instructions: Take 1 tablet by mouth once daily Discharge Orders: Discharge ED (Routine); Ordered 04/19/23 Ordered By: Jignesh Lorenzo Referrals: Cary Lamb DO [Primary Care Provider] - 1-3 days Patient Instructions: Opioid Safety, Pain Management Coding Level of Care Code ED Vice President Risk Management for [facility] Sands
[2023-04-19 20:13] VITALS: BP 162/94; PULSE 63; RESP 16; TEMP 36.6; O2SAT 96
== END 2023-04-19 20:16 | disposition home or self-care (01) ==
PROVIDERS: Physician Assistant; Emergency Provider Emergency Medicine; PCP Family Medicine
DX: N85.00 Endometrial hyperplasia, unspecified (principal); R10.2 Pelvic and perineal pain; Z87.891 Personal history of nicotine dependence; I10 Essential (primary) hypertension
CPT/HCPCS: 36415; 74176; 80053; 81003; 83690; 84703; 85025; 93005; 96374; 96375; 99285; J2270; J2405

== ENCOUNTER → 2023-07-04 14:49 | Outpatient (BNVA) | payer BC, SELFPAY | PROVIDERS: PCP Family Medicine; Visit Provider Family Medicine | DX: I10 Essential (primary) hypertension (principal) | CPT/HCPCS: 80053 ==

== ENCOUNTER → 2023-08-15 12:02 | Outpatient (BNVA) | payer BC, SELFPAY | PROVIDERS: PCP Family Medicine; Visit Provider Family Medicine | DX: I10 Essential (primary) hypertension (principal) | CPT/HCPCS: 80048 ==

== ENCOUNTER → 2024-03-30 14:47 | Outpatient (BNVA) | payer OTHER, SELFPAY | PROVIDERS: PCP Family Medicine; Visit Provider Family Medicine | DX: Z00.00 Encounter for general adult medical examination without abnormal findings (principal) | CPT/HCPCS: 80053; 80061; 84443; 85025 ==

== ENCOUNTER 2024-05-06 07:57 | Outpatient (CLI) | payer OTHER, SELFPAY ==
--- NOTE | 2024-05-06 08:05 | MM_ITS ---
WS: [id number] SCREENING DIGITAL BREAST TOMOSYNTHESIS MAMMOGRAM WITH CAD HISTORY: Screening. COMPARISON: 03/24/2019, 11/25/2022 Bilateral CC and MLO with tomosynthesis and synthetic mammography submitted. Computer aided detection analyzed. Breast composition: There are scattered areas of fibroglandular density. Reidentified is a mass in the upper outer quadrant of the LEFT breast at a middle depth which has increased in size. Mass now measures 1.7 x 2.3 x 2.2 cm. Mass is of increased density with well-circumscribed borders. This was noted to be a cyst on prior ultrasound but it has increased significantly in size. There are additional asymmetries in the lateral RIGHT breast seen best on the CC projection. These asymmetries are new and more prominent as compared to the most recent mammograms. MM/MM [facility] tomosynthesis [id number] IMPRESSION: BI-RADS: 0 - Incomplete: Need additional imaging evaluation. FOLLOW UP: Need Additional Imaging RIGHT breast: Spot compression views (CC and MLO). True ML. Ultrasound to follo w if abnormality persists. LEFT breast ultrasound, limited.
== END 2024-05-06 07:58 | disposition home or self-care (01) ==
LOC: RAD 07:58
PROVIDERS: PCP Family Medicine; Visit Provider Family Medicine
DX: Z12.31 Encounter for screening mammogram for malignant neoplasm of breast (principal); R92.323 Mammographic fibroglandular density, bilateral breasts; N63.21 Unspecified lump in the left breast, upper outer quadrant; N64.89 Other specified disorders of breast
CPT/HCPCS: 77063; 77067

== ENCOUNTER 2024-06-08 09:11 | Outpatient (CLI) | payer OTHER, SELFPAY ==
--- NOTE | 2024-06-08 09:21 | US_ITS ---
WS: [id number] ADDITIONAL VIEWS RIGHT MAMMOGRAM WITH DIGITAL BREAST TOMOSYNTHESIS. RIGHT BREAST ULTRASOUND, LIMITED LEFT BREAST ULTRASOUND, LIMITED HISTORY: abnormal screening mammogram both breasts COMPARISON: 05/06/2024, 11/25/2022 RIGHT MAMMOGRAM: Spot compression views and true ML with digital breast tomosynthesis and SM. Breast composition: There are scattered areas of fibroglandular density. Asymmetries in the upper outer quadrant of the RIGHT breast persist but are less masslike. Ultrasound will be performed of the upper outer quadrant to ensure there is no underlying abnormality. Bilateral BREAST ULTRASOUND, limited 2-D and color Doppler imaging submitted. RIGHT: Dense fibroglandular tissue in the upper outer quadrant of the RIGHT breast and towards 9:00. Additional simple cyst at 11:00 1 cm from nipple measures 0.8 x 0.6 x 0.7 cm. There are few small cysts present. No areas of shadowing or mass. LEFT breast: Ovoid anechoic mass measures 2.1 x 1.0 x 2.2 cm at 2:00, 2 cm from the nipple. There is a smaller adjacent cyst. No solid mass. US/US breast BI limited* [id number] IMPRESSION: BI-RADS: 2 - Benign. FOLLOW UP: 1 Year Follow-up Bilateral breast cysts. No additional imaging follow-up necessary.
--- NOTE | 2024-06-08 09:30 | MM_ITS ---
WS: [id number] ADDITIONAL VIEWS RIGHT MAMMOGRAM WITH DIGITAL BREAST TOMOSYNTHESIS. RIGHT BREAST ULTRASOUND, LIMITED LEFT BREAST ULTRASOUND, LIMITED HISTORY: abnormal screening mammogram both breasts COMPARISON: 05/06/2024, 11/25/2022 RIGHT MAMMOGRAM: Spot compression views and true ML with digital breast tomosynthesis and SM. Breast composition: There are scattered areas of fibroglandular density. Asymmetries in the upper outer quadrant of the RIGHT breast persist but are less masslike. Ultrasound will be performed of the upper outer quadrant to ensure there is no underlying abnormality. Bilateral BREAST ULTRASOUND, limited 2-D and color Doppler imaging submitted. RIGHT: Dense fibroglandular tissue in the upper outer quadrant of the RIGHT breast and towards 9:00. Additional simple cyst at 11:00 1 cm from nipple measures 0.8 x 0.6 x 0.7 cm. There are few small cysts present. No areas of shadowing or mass. LEFT breast: Ovoid anechoic mass measures 2.1 x 1.0 x 2.2 cm at 2:00, 2 cm from the nipple. There is a smaller adjacent cyst. No solid mass. MM/MM diag [facility] tomosynthesis [id number] IMPRESSION: BI-RADS: 2 - Benign. FOLLOW UP: 1 Year Follow-up Bilateral breast cysts. No additional imaging follow-up necessary.
== END 2024-06-08 09:12 | disposition home or self-care (01) ==
PROVIDERS: PCP Family Medicine; Visit Provider Family Medicine
DX: R92.8 Other abnormal and inconclusive findings on diagnostic imaging of breast (principal); R92.323 Mammographic fibroglandular density, bilateral breasts; N64.89 Other specified disorders of breast; N60.11 Diffuse cystic mastopathy of right breast; N63.20 Unspecified lump in the left breast, unspecified quadrant; N60.02 Solitary cyst of left breast
CPT/HCPCS: 76642; 77061; G0279